=== PATIENT | male | born 1965 | race Hispanic/Latino ===

== ENCOUNTER 2019-09-25 07:57 | Outpatient (CLI) | payer BC ==
--- NOTE | 2019-09-25 09:12 | MRI ---
EXAM: MRI lumbar spine without contrast HISTORY: Left leg pain COMPARISON: None TECHNIQUE: Multiple planar multisequence MR images were obtained of the lumbar spine without contrast . FINDINGS: The vertebral bodies and intervertebral discs demonstrate normal height and alignment without fractur e or subluxation. The prevertebral and paraspinal soft tissues are unremarkable. Endplate degenerative changes are seen in the lower lumbosacral spine. The conus medullaris terminates normally at T12/L1. T12/L1: No significant posterior bulge or protrusion. No posterior facet arthrosis. No central kiki l stenosis. No neural foraminal stenosis L1/2: No significant posterior bulge or protrusion. No posterior facet arthrosis. No central canal stenosis. No neural foraminal stenosis L2/3: No significant posterior bulge or protrusion. No posterior facet arthrosis. No central canal stenosis. No neural foraminal stenosis L3/4: Mild generalized concentric disc bulge. No posterior facet arthrosis. No central canal stenos is. Mild bilateral neural foraminal stenosis L4/5: There is a large generalized concentric disc bulge with a large central protrusion slightly to the left of midline. This appears to impress upon the left L5 nerve root. Mild bilateral posterior facet arthrosis. Severe central canal stenosis. Moderate right and severe left neural foraminal amalia nosis L5/S1: Small disc osteophyte complex. No posterior facet arthrosis. No central canal stenosis. Mod erate bilateral neural foraminal stenosis IMPRESSION: Degenerative changes of the lower lumbosacral spine as above.
== END 2019-09-25 07:58 | disposition home or self-care (01) ==
LOC: TBSIIMAG 07:57
PROVIDERS: ATTEND Physical Medicine & Rehabilitation
DX: M54.5 Low back pain (principal); M47.817 Spondylosis without myelopathy or radiculopathy, lumbosacral region
CPT/HCPCS: 72148

== ENCOUNTER 2020-03-13 05:35 | Outpatient (CLI) | payer BC, OTHER ==
--- NOTE | 2020-03-13 15:07 | RAD ---
LUMBAR SPINE THREE VIEWS: 03/13/20 INDICATIONS: Preoperative evaluation with history of low back pain radiating down the left leg. COMPARISON: No radiographic comparisons are available. Comparisons are made with an MR of the lumbar spine dated 09/25/2019. FINDINGS: There is moderate disc degenerative disease at L4-5 and L5-S1. Spinal alignment on the neutral projec tion is within normal limits. No definite abnormal translational motion is evident. Vertebral body he ights are preserved. IMPRESSION: Mild lumbar spondylosis without abnormal translational motion. POS: BH
[2020-03-13 16:30] LABS: Mean Corpuscular HGB CONC 33.8 g/dL (32.0-36.0); Mean Corpuscular Hemoglobin 30.8 pg (27.0-31.0); Mean Corpuscular Volume 90.9 fL (78.0-98.0); Mean Platelet Volume 10.9 fL (7.4-10.4); Platelet Count 171 thou/uL (130-400); Red Blood Cell (RBC) Count 4.86 mill/uL (4.70-6.10); White Blood Cell (WBC) Count 5.9 thou/uL (4.8-10.8)
[2020-03-14 14:45] LABS: SARS-CoV-2 MS2 Positive; SARS-CoV-2 N Gene Negative; SARS-CoV-2 S Gene Negative; SARS-CoV-2 by NAA Not Detected (NotDetected); SARS-CoV-2 orf1ab Negative
== END 2020-03-13 05:36 | disposition home or self-care (01) ==
LOC: LABBT 05:35 → MERGE 05:35 → SCSRAD 05:36
PROVIDERS: ATTEND Neurological Surgery
DX: Z01.818 Encounter for other preprocedural examination (principal); Z11.59 Encounter for screening for other viral diseases; M48.062 Spinal stenosis, lumbar region with neurogenic claudication; M51.16 Intervertebral disc disorders with radiculopathy, lumbar region
CPT/HCPCS: 72100; 85027; 87635; 93005; 93010; U0003

== ENCOUNTER 2020-03-17 05:49 | Day surgery (SDC) | payer BC ==
[2020-03-16 09:05] VITALS: BMI 30.2
--- NOTE | 2020-03-16 13:35 | HP ---
SURGERY DATE: March 17, 2020. . CHIEF COMPLAINT: Lower back and leg pain. HISTORY OF PRESENT ILLNESS: Mr. Graham is a 54-year-old gentleman with ongoing lower back and bilateral leg pain. He has a history of a laminectomy at L4-L5 in [facility], 2006. He has been continuing to do his physical therapy exercises , which include core strengthening and have not been helping him relieve the pain. He indicates that gabapentin helps slightly, so he could walk farther. 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 His back pain improves when he bends forward and with gabapentin. Denies sensory loss, lower extremity weakness, perineal/saddle numbness, or bladder or bowel dysfunction. MRI demonstrates L4- L5 large disk bulge with central protrusion slightly on the left causing an L5 radiculopathy. REVIEW OF SYSTEMS: CONSTITUTIONAL: Denies fever or chills. ENT: Denies change in vision or hearing. CARDIAC: Denies chest pain, shortness of breath, or diaphoresis. PULMONARY: Denies shortness of breath, cough, or hemoptysis. GI: Denies fecal incontinence, abdominal pain, nausea, vomiting, diarrhea, change in stool formation and consistency. : Denies urinary incontinence, trouble with urination, frequency of urination , bloody urine. SKIN: Denies skin rash, bruising, bleeding, skin masses. MUSCULOSKELETAL: As per history of present illness. NEUROLOGICAL: As per history of present illness. PSYCHOLOGICAL: Denies anxiety, depression, or behavioral changes. PAST MEDICAL HISTORY: Hypertension, hernia. PAST SURGICAL HISTORY: Hernia in 2006, laminectomy L4-L5 in 2006. HOSPITALIZATION: Above surgical history. FAMILY HISTORY: Father, diagnosed with cancer. Mother, alive, hypertension. Siblings alive. Son alive. Daughter alive. SOCIAL HISTORY: Nonsmoker. Occasionally drinks alcohol. Denies illicit drug use. MEDICATIONS: 1. Lisinopril 20 mg twice a day. 2. Amlodipine 5 mg. 3. Gabapentin 300 mg three times a day. ALLERGIES: SULFA, REACTION IS SKIN RASH, DISCOMFORT. PHYSICAL EXAMINATION: VITAL SIGNS: Weight 215, height 5 feet 10 inches. HEENT: Pupils are equal. Extraocular movements are intact. NECK: Normal soft and supple. No masses are noted. Range of motion is intact and nonpainful. NEUROLOGICAL: Awake, alert, and oriented x3. Memory, attention, fund of knowledge, and language are normal. Cranial nerves grossly intact. Lower extremity: Gait and station are normal. Motor exam, mild EHL, AT weakness left. Sensory exam, L5 numbness, left is greater than right. IMAGING STUDIES: MRI, L4-L5, HLP with stenosis on the left. Flexion-extension x-rays normal. ASSESSMENT: 1. Lumbar stenosis with neurogenic claudication. 2. Intervertebral disk disorder with radiculopathy. PLAN: 1. Redo L4-L5 laminectomy with a left microdiskectomy. 2. Preop labs, CBC, PT, PTT, COVID-19. 3. Anesthesia clearance. 4. Informed consent. We discussed the indications, risks, benefits, and alternatives and expected results from surgery. The risks discussed included, but were not limited to, bleeding, infection, CSF leak, nerve damage, weakness, incontinence, cauda equina injury, arachnoiditis, paralysis, ventilator dependency, wheelchair dependency, loss of vision, cardiopulmonary complications of anesthesia or . Long-term complications discussed included, but were not limited to spinal instability and future surgery. He understands the risks and is willing to proceed. Job ID: [id number] [facility]
[2020-03-17] MEDS ORDERED: Bupivacaine PF 0.5% 30 ML VIAL ONE (06:29)
[2020-03-17] MEDS ORDERED: EPINEPHrine 1 MG/ML AMP ONE (06:29)
[2020-03-17] MEDS ORDERED: Thrombin 5000 UNITS/5 ML VIAL ONE (06:30)
[2020-03-17] MEDS ORDERED: Sodium Chloride 0.9% 10 ML ONE (06:33)
[2020-03-17] MEDS ORDERED: Fentanyl 100 MCG/2 ML VIAL ONE ×4 (06:42→11:20)
[2020-03-17 07:26] LABS: INR-International Normal Ratio 1.1; Prothrombin Time 14.1 sec (12.0-14.7)
[2020-03-17 07:27] LABS: PTT 38.1 sec (22.9-36.1)
[2020-03-17] MEDS ORDERED: Glycopyrrolate 0.2 MG/ML 5 ML SYRINGE ONE (10:13)
[2020-03-17] MEDS ORDERED: Lidocaine 1% PF 5 ML VIAL ONE (10:13)
[2020-03-17] MEDS ORDERED: Ondansetron PF 4 MG/2 ML Vial ONE (10:13)
[2020-03-17] MEDS ORDERED: Rocuronium Bromide 10 MG/ML (10ML VIAL) ONE (10:13)
[2020-03-17] MEDS ORDERED: PROPOFOL 200 MG/20 ML VIAL ONE (10:13)
[2020-03-17] MEDS ORDERED: Dexamethasone 20 MG/5 ML VIAL ONE (10:13)
[2020-03-17] MEDS ORDERED: PHENYLEPHRINE-NS 100 MCG/ML 10 ML SYRINGE ONE (10:13)
--- NOTE | 2020-03-17 10:28 | OP ---
DATE OF PROCEDURE: 03/17/2020 CITY MANAGER: Quinn Sy PA-C PREOPERATIVE INDICATION: Treat pain and prevent neurological deterioration. PREOPERATIVE DIAGNOSIS: Recurrent intervertebral disk herniation at L4-L5 with left greater than right L5 radiculopathy and severe lumbar stenosis. POSTOPERATIVE DIAGNOSIS: Recurrent intervertebral disk herniation at L4-L5 with left greater than right L5 radiculopathy and severe lumbar stenosis. OPERATIVE PROCEDURES: Reopening lumbar incision, L4-L5 laminectomy, medial facetectomy, foraminotomy, and left-sided microdiskectomy, operating microscope. PREOPERATIVE MEDICATIONS: Ancef 2 g IV. DRAIN NUMBER: Zero. DRAIN TYPE: None. DESCRIPTION OF PROCEDURE: The patient was brought to the operating room. General endotracheal anesthesia was induced. The patient was carefully positioned prone with the chest and hips supported by gel-filled chest rolls. A lateral fluoro radiograph confirmed that the previous incision would give us access to L5. We extended our planned incision superiorly at L4. This give us access to L4. We marked out our planned incision, removed hair with electric clippers and sterilely prepped and draped the back. We opened with a 10 blade knife and we controlled bleeding with bipolar and monopolar cautery. We used monopolar cautery to dissect through subcutaneous tissues and scar tissue to the thoracodorsal fascia. We incised the fascia in the midline and reflected the paraspinal muscles off the spinous process and lamina of L4 and L5. A self-retaining retractor was placed and a lateral fluoro radiograph confirmed the levels upon which we were operating. We then used an Adson rongeur to remove the spinous process of L4 and the superior portion of the spinous process of L5. A Kerrison rongeur was used to fashion a laminectomy. There was dense scar tissue at the L4-L5 interspace that required a microscope. The operating microscope was brought into the field. Under microscopic magnification using microsurgical techniques, we loosen scar tissue from the lateral aspect of the spinal canal. We used Kerrison rongeurs to perform medial facetectomy on both sides until we could decompress the lateral recesses. We identified the L5 nerve roots on either side and followed them out to their foramen. We performed foraminotomies over them. It was difficult to mobilize the left-sided L5 nerve root due to disk protrusion ventrally. Carefully under the operating microscope, we dissected the nerve free of disk material. We entered the hole in the annulus and found a significant number of loose fragments of disk in the ventral epidural space. As each large fragment was removed, the nerve became more pliable. Finally, we had removed every piece of disk herniation that we could and the thecal sac and the nerve roots were nicely relaxed. We reached into the interspace itself and removed loose fragments of disk. The remainder of the disk was firmly adherent to the endplates and left in place. We irrigated copiously with bacitracin irrigation. I made sure both L5 nerve roots were loose and mobile. We then harvested a small pledget of fat and left it in the opening of the annular tear and we treated the wound with vancomycin powder. We infused local anesthetic in the paraspinal muscles and we closed in anatomical layers and applied a sterile dressing. This was a clean case, no contamination. Job ID: [id number]
[2020-03-17] MEDS ORDERED: Tamsulosin HCl 0.4 MG CAP ONE (11:07)
[2020-03-17] MEDS ORDERED: Acetaminophen/Codeine 30-300mg Tablet ONE (12:51)
== END 2020-03-17 14:15 | disposition home or self-care (01) ==
LOC: SDC 05:49 → MERGE 13:30 → SDC 14:15
PROVIDERS: ATTEND Neurological Surgery
PROC: 01NB0ZZ Release Lumbar Nerve, Open Approach (ICD-10-PCS; principal; 2020-03-17)
PROC: 0ST20ZZ Resection of Lumbar Vertebral Disc, Open Approach (ICD-10-PCS; principal; 2020-03-17)
DX: M48.062 Spinal stenosis, lumbar region with neurogenic claudication (principal); M51.16 Intervertebral disc disorders with radiculopathy, lumbar region; I10 Essential (primary) hypertension; Z79.899 Other long term (current) drug therapy; Z88.2 Allergy status to sulfonamides
CPT/HCPCS: 76000; 85610; 85730; J0171; J0690; J1100; J2405; J2704; J3010; J3370; J3490; S0020

== ENCOUNTER 2021-04-20 11:13 | Outpatient (CLI) | payer BC | END 2021-04-20 11:14 | disposition home or self-care (01) | LOC: TBSIIMAG 11:13 | PROVIDERS: ATTEND Neurological Surgery | DX: M51.16 Intervertebral disc disorders with radiculopathy, lumbar region (principal); M47.26 Other spondylosis with radiculopathy, lumbar region; Z98.890 Other specified postprocedural states | CPT/HCPCS: 72110 ==

== ENCOUNTER 2021-06-02 08:42 | Outpatient (CLI) | payer BC ==
[2021-06-02] MEDS ORDERED: Magnevist 469MG/ML 20 ML VIAL ONE (10:42)
== END 2021-06-02 08:43 | disposition home or self-care (01) ==
LOC: TBSIIMAG 08:42
PROVIDERS: ATTEND Neurological Surgery
DX: M51.16 Intervertebral disc disorders with radiculopathy, lumbar region (principal); Z98.890 Other specified postprocedural states; M25.80 Other specified joint disorders, unspecified joint
CPT/HCPCS: 72158; A9579

== ENCOUNTER 2023-05-25 06:18 | Day surgery (SDC) | payer BC ==
[2023-05-15 15:20] VITALS: BMI 31.2
[2023-05-25] MEDS ORDERED: PROPOFOL 40 ML ONE (08:29)
[2023-05-25] MEDS ORDERED: fentaNYL 50 mcg/mL 1 mL Vial ONE ×2 (08:29→09:05)
[2023-05-25] MEDS ORDERED: Sodium Chloride 0.9% 100 ML ONE (08:40)
[2023-05-25] MEDS ORDERED: cefTRIAXone (ROCEPHIN) 1 GM VIAL ONE (08:40)
[2023-05-25] MEDS ORDERED: ePHEDrine Sulfate 50 MG/10 ML VIAL ONE (08:50)
[2023-05-25] MEDS ORDERED: HYDROcodone/Acetaminophen 5/325 mg Tablet ONE (10:33)
== END 2023-05-25 11:24 | disposition home or self-care (01) ==
LOC: SDC 06:18
PROVIDERS: ATTEND Urology
PROC: 0VB03ZX Excision of Prostate, Percutaneous Approach, Diagnostic (ICD-10-PCS; principal; 2023-05-25)
DX: N40.1 Benign prostatic hyperplasia with lower urinary tract symptoms (principal); R39.12 Poor urinary stream; R97.20 Elevated prostate specific antigen [PSA]; I10 Essential (primary) hypertension; Z98.890 Other specified postprocedural states; Z88.2 Allergy status to sulfonamides; Z79.899 Other long term (current) drug therapy
CPT/HCPCS: G0416; J0696; J2704; J3010; J3490